=== PATIENT | male | born 1955 | race Caucasian/White ===

== ENCOUNTER 2021-11-29 14:14 | Emergency (ER) | payer OTHER ==
[~2021-11-29 14:14] MED LIST: FLEXERIL10 MG PO; FLOMAX0.4 MG PO; GLUCOPHAGE1000 MG PO; LANTUS **100 UNITS/ SC; LEVITRA5 MG PO; LIPITOR40 M1 PO; LOPRESSOR100 MG PO; MULTI-VITAMIN1 EACH PO; NOVOLOG VI100 UNIT/1 SC; OMEPRAZOLE20 MG PO; OXY-IR 5MG5 MG PO; PERCOCET 5-3251 EACH PO; TRULICITY0.75 MG/0. SC
[2021-11-29] MEDS ORDERED: MEDROL 4MG DOSEP4 MG PO (17:16)
== END 2021-11-29 17:21 | disposition home or self-care (01) ==
LOC: FER 14:14
DX: S76.012A Strain of muscle, fascia and tendon of left hip, initial encounter (principal); S00.93XA Contusion of unspecified part of head, initial encounter; W18.2XXA Fall in (into) shower or empty bathtub, initial encounter; Y92.009 Unspecified place in unspecified non-institutional (private) residence as the place of occurrence of the external cause
CPT/HCPCS: 70450; 72170; 73502